=== PATIENT | female | born 1985 | race Caucasian/White ===

== ENCOUNTER 2019-02-25 13:15 | Emergency (ER) | payer MEDICAID ==
[~2019-02-25] VITALS: Ht 177.8 cm; Wt 68.0 kg
[2019-02-25 13:53] VITALS: BP 127/73
--- NOTE | 2019-02-25 13:53 | NUR ---
Patient discharged to home in stable conditon. Written and verbal after care instructions given. Patient verbalizes understanding of instructions. Patient ambulated with stable gait.
== END 2019-02-25 13:55 | disposition home or self-care (01) ==
LOC: ER 13:15
DX: T19.2XXA Foreign body in vulva and vagina, initial encounter (principal); Y99.8 Other external cause status; X58.XXXA Exposure to other specified factors, initial encounter; Y93.89 Activity, other specified; Y92.89 Other specified places as the place of occurrence of the external cause; E11.9 Type 2 diabetes mellitus without complications
CPT/HCPCS: A4663

== ENCOUNTER 2019-09-22 12:22 | Emergency (ER) | payer MEDICAID ==
[~2019-09-22] VITALS: Ht 177.8 cm; Wt 68.0 kg
[2019-09-22] MEDS: IV NORMAL SALINE 1000 ML BAG IV ONE (13:10)
[2019-09-22] MEDS ORDERED: HYDROMORPHONE 2 MG/1 ML DISP.SYRIN ONE (13:11)
[2019-09-22] MEDS ORDERED: ONDANSETRON 4 MG/2 ML VIAL ONE (13:11)
[2019-09-22] MEDS: HYDROMORPHONE 1 MG/1 ML DISP.SYRIN IV ONE (13:12)
[2019-09-22 13:13] LABS: BASOPHILS % (AUTO) 0.4 % (0.0-2.0); EOSINOPHILS # (AUTO) 0.1 K/uL (0.0-0.7); HEMATOCRIT 41.6 % (31.2-41.9); HEMOGLOBIN 13.8 g/dL (10.9-14.3); LYMPHOCYTES # (AUTO) 1.8 K/uL (20.0-40.0); LYMPHOCYTES % (AUTO) 17.9 % (20.5-51.5); MEAN CORPUSCULAR HGB CONC 33 g/dL (32.3-35.6); MEAN CORPUSCULAR VOLUME 90.5 fL (75.5-95.3); MONOCYTES # (AUTO) 1.2 K/uL (2.0-10.0); MONOCYTES % (AUTO) 11.7 % (0.0-11.0); NEUTROPHILS # (AUTO) 6.9 K/uL (1.8-8.9); PLATELET COUNT (AUTO) 272 K/uL (179-408); WHITE BLOOD COUNT (AUTO) 10.1 K/uL (3.8-11.8)
[2019-09-22] MEDS: ONDANSETRON 4 MG/2 ML VIAL IV ONE (13:15)
[2019-09-22 13:25] LABS: BILIRUBIN,DIRECT 0.1 mg/dL (0.0-0.2); BILIRUBIN,TOTAL 0.6 mg/dL (0.2-1.0); CREATININE 0.8 mg/dL (0.6-1.3); POTASSIUM 3.9 mmol/L (3.5-5.1); TOTAL PROTEIN, SERUM 6.3 g/dL (6.4-8.2)
--- NOTE | 2019-09-22 13:47 | NUR ---
Pt states feeling better, and no longer nausous or have a headache.
--- NOTE | 2019-09-22 14:13 | NUR ---
Pt able to tolorate PO intake.
--- NOTE | 2019-09-22 14:16 | NUR ---
IV removed. Catheter intact and site benign. Pressure and 4x4 gauze applied to site. No bleeding noted.
[2019-09-22 14:17] VITALS: BP 113/70
--- NOTE | 2019-09-22 14:17 | NUR ---
Patient discharged to home in stable condition. Written and verbal after care instructions given. Patient verbalizes understanding of instructions. Stressed follow up or return to ER for worsening s/s.
== END 2019-09-22 14:19 | disposition home or self-care (01) ==
LOC: ER 12:22
DX: G43.A1 Cyclical vomiting, in migraine, intractable (principal); E11.9 Type 2 diabetes mellitus without complications
CPT/HCPCS: 36415; 80048; 80076; 83690; 84702; 85025; 96361; 96374; 96375; 99284; J1170; J2405; A4663; J7030